=== PATIENT | female | born 1945 | race Caucasian/White ===

== ENCOUNTER 2018-03-08 13:19 | Emergency (ER) | payer MEDICARE ==
--- NOTE | 2018-03-08 13:47 | EDM.PDOC ---
ED HPI GENERAL MEDICAL PROBLEM - General Chief Complaint: General Stated Complaint: MEDICAL VIA [facility] Time Seen by Provider: 03/08/18 13:46 Source of Information: Reports: Patient History Limitations: Reports: No Limitations - History of Present Illness INITIAL COMMENTS - FREE TEXT/NARRATIVE: pt was having lunch and she suddenly had motion in front of her eyes and her vision got blurry. She did get sweaty and started to vomit. She had no chest pain. She did vomit several times and she ws still nauseated after arrival. She did not have abdomanal pain. Onset: Today Duration: Hour(s): Location: Reports: Generalized Associated Symptoms: Reports: Nausea/Vomiting, Weakness - Related Data Allergies Allergy/AdvReac Type Severity Reaction Status Date / Time Latex, Natural Rubber Allergy Itching Verified 03/08/18 13:35 Home Meds: Home Meds Aspirin [Halfprin] 81 mg PO DAILY 03/29/15 [History] Fexofenadine/Pseudoephedrine [Randi-D 24 Hour Tablet] 1 each PO BEDTIME [History] Pantoprazole Sodium 40 mg PO DAILY 03/29/15 [History] Pravastatin [Pravachol] 20 mg PO BEDTIME 03/29/15 [History] Triamterene/Hydrochlorothiazid [Triamterene-HCTZ 37.5-25 MG] 1 each PO DAILY [History] Lisinopril 1 tab PO DAILY 03/08/18 [History] Past Medical History HEENT History: Reports: Impaired Vision Other HEENT History: macular fold Cardiovascular History: Reports: High Cholesterol, Hypertension Gastrointestinal History: Reports: [employer] History: Reports: Neurological History: Reports: Migraines Other Endocrine/Metabolic History: in past - Past Surgical History HEENT Surgical History: Reports: Tonsillectomy Social & Family History - Tobacco Use Smoking Status *Q: Never Smoker - Recreational Drug Use Recreational Drug Use: No ED ROS GENERAL - Review of Systems Review Of Systems: See Below Constitutional: Reports: Diaphoresis HEENT: Reports: Other (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 For the last 2 days she has had alot of swelling present on and off. She did have a slight feeling of vertigo.) Respiratory: Reports: No Symptoms Cardiovascular: Reports: No Symptoms Endocrine: Reports: No Symptoms GI/Abdominal: Reports: Nausea, Vomiting, Other (no pain) : Reports: No Symptoms Musculoskeletal: Reports: No Symptoms Skin: Reports: No Symptoms Neurological: Reports: Weakness, Other ( Pt was slow to answer when she felt the worse. She does remember the entire event. ) Psychiatric: Reports: No Symptoms ED EXAM, GENERAL - Physical Exam Exam: See Below Free Text/Narrative:: Pt had an episode while out to lunche of vomiting blurred vision and feeling like the room was spinning. Exam Limited By: No Limitations General Appearance: Alert, Mild Distress, Other (pupils equal and reactive slight nystagmus) Ears: Normal TMs, Other (pt has definite swelling of the salivary gland. She has history of stones in the salivary duct. ) Nose: Normal Inspection Throat/Mouth: Normal Inspection Head: Atraumatic Neck: Normal Inspection Respiratory/Chest: No Respiratory Distress Cardiovascular: Regular Rate, Rhythm GI/Abdominal: Soft, Non-Tender (Female) Exam: Deferred Rectal (Female) Exam: Deferred Back Exam: Normal Inspection Extremities: Normal Inspection Neurological: Alert, Oriented, Normal Cognition Psychiatric: Normal Affect Course - Vital Signs Last Recorded V/S: Last Vital Signs Temp 35.6 C 03/08/18 13:37 Pulse 87 03/08/18 15:18 Resp 16 03/08/18 15:18 BP 107/62 03/08/18 15:18 Pulse Ox 91 L 03/08/18 15:18 - Orders/Labs/Meds Labs: Laboratory Tests 03/08/18 03/08/18 03/08/18 Range/Units 13:45 13:45 13:46 WBC 12.2 H (4.5-11.0) K/uL RBC 5.19 (3.30-5.50) M/uL Hgb 14.8 (12.0-15.0) g/dL Hct 44.5 (36.0-48.0) % MCV 86 (80-98) fL MCH 29 (27-31) pg MCHC 33 (32-36) % Plt Count 356 (150-400) K/uL Neut % (Auto) 76 H (36-66) % Lymph % (Auto) 14 L (24-44) % Ashe % (Auto) 8 H (2-6) % Eos % (Auto) 1 L (2-4) % Baso % (Auto) 0 (0-1) % Sodium 138 L (140-148) mmol/L Potassium 3.8 (3.6-5.2) mmol/L Chloride 99 L (100-108) mmol/L Carbon Dioxide 28 (21-32) mmol/L Anion Gap 14.8 H (5.0-14.0) mmol/L BUN 25 H (7-18) mg/dL Creatinine 1.2 H (0.6-1.0) mg/dL Est Cr Clr Drug Dosing 39.25 mL/min Estimated GFR (MDRD) 44 L (>60) Glucose 133 H (74-106) mg/dL Calcium 9.2 (8.5-10.1) mg/dL Total Bilirubin 0.4 (0.2-1.0) mg/dL AST 33 (15-37) U/L ALT 61 (12-78) U/L Alkaline Phosphatase 87 (46-116) U/L Troponin I < 0.017 (0.000-0.056) ng/mL Total Protein 7.2 (6.4-8.2) g/dL Albumin 3.5 (3.4-5.0) g/dL Globulin 3.7 H (2.3-3.5) g/dL Albumin/Globulin Ratio 1.0 L (1.2-2.2) Urine Color Urine Appearance Urine pH (4.5-8.0) Ur Specific [place] (1.008-1.030) Urine Protein (NEGATIVE) mg/dL Urine Glucose (UA) (NEGATIVE) mg/dL Urine Ketones (NEGATIVE) mg/dL Urine Occult Blood (NEGATIVE) Urine Nitrite (NEGATIVE) Urine Bilirubin (NEGATIVE) Urine Urobilinogen (NORMAL) mg/dL Ur Leukocyte Esterase (NEGATIVE) Urine RBC (0-5) Urine WBC (0-5) Ur Epithelial Cells Amorphous Sediment Urine Bacteria Urine Mucus 03/08/18 Range/Units 15:40 WBC (4.5-11.0) K/uL RBC (3.30-5.50) M/uL Hgb (12.0-15.0) g/dL Hct (36.0-48.0) % MCV (80-98) fL MCH (27-31) pg MCHC (32-36) % Plt Count (150-400) K/uL Neut % (Auto) (36-66) % Lymph % (Auto) (24-44) % [place]he % (Auto) (2-6) % Eos % (Auto) (2-4) % Baso % (Auto) (0-1) % Sodium (140-148) mmol/L Potassium (3.6-5.2) mmol/L Chloride (100-108) mmol/L Carbon Dioxide (21-32) mmol/L Anion Gap (5.0-14.0) mmol/L BUN (7-18) mg/dL Creatinine (0.6-1.0) mg/dL Est Cr Clr Drug Dosing mL/min Estimated GFR (MDRD) (>60) Glucose (74-106) mg/dL Calcium (8.5-10.1) mg/dL Total Bilirubin (0.2-1.0) mg/dL AST (15-37) U/L ALT (12-78) U/L Alkaline Phosphatase (46-116) U/L Troponin I (0.000-0.056) ng/mL Total Protein (6.4-8.2) g/dL Albumin (3.4-5.0) g/dL Globulin (2.3-3.5) g/dL Albumin/Globulin Ratio (1.2-2.2) Urine Color Yellow Urine Appearance Clear Urine pH 7.0 (4.5-8.0) Ur Specific [place] 1.010 (1.008-1.030) Urine Protein Negative (NEGATIVE) mg/dL Urine Glucose (UA) Normal (NEGATIVE) mg/dL Urine Ketones Negative (NEGATIVE) mg/dL Urine Occult Blood Negative (NEGATIVE) Urine Nitrite Negative (NEGATIVE) Urine Bilirubin Negative (NEGATIVE) Urine Urobilinogen Normal (NORMAL) mg/dL Ur Leukocyte Esterase Negative (NEGATIVE) Urine RBC 0-5 (0-5) Urine WBC 0-5 (0-5) Ur Epithelial Cells Many Amorphous Sediment Few Urine Bacteria Not seen Urine Mucus Not seen Meds: Medications Discontinued Medications Generic Name Dose Route Start Last Admin Trade Name Freq PRN Reason Stop Dose Admin Sodium Chloride 1,000 mls @ 999 mls/hr 03/08/18 14:15 03/08/18 15:39 Normal Saline IV 999 mls/hr ASDIRECTED SIM Administration Sodium Chloride 1,000 mls @ 999 mls/hr 03/08/18 15:45 03/08/18 16:43 Normal Saline IV 999 mls/hr ASDIRECTED SIM Administration Lorazepam 0.5 mg 03/08/18 15:39 Ativan IVPUSH 03/08/18 15:40 ONETIME ONE Meclizine HCl 25 mg 03/08/18 14:13 03/08/18 15:45 Antivert PO 03/08/18 14:14 25 mg ONETIME ONE Administration Ondansetron HCl 4 mg 03/08/18 14:13 03/08/18 15:47 Zofran IVPUSH 03/08/18 14:14 4 mg ONETIME ONE Administration - Re-Assessments/Exams Free Text/Narrative Re-Assessment/Exam: 03/08/18 16:59 pt had a cat scan of the head that was neg, her lab work looked good except a borderline creatnine which is not new. Her ekg did not reveal acute findings, Her trop was normal. Departure - Departure Time of Disposition: 15:20 Disposition: Home, Self-Care 01 Condition: Fair Clinical Impression: Inner ear dysfunction - Discharge Information Instructions: Labyrinthitis Referrals: PCP,None [Primary Care Provider] - Forms: ED Department Discharge Care Plan Goals: low activity for the next 2 days. zoforan 4 mg q6h prn for nausea, antivert 25 bid for dizziness for the next 2 days. Massage the duct of the rt salivary gland, cool pack, if not improving will need to see ENT
[2018-03-08] MEDS ORDERED: Meclizine 25 MG Tab PO ONE (14:13)
[2018-03-08] MEDS ORDERED: Ondansetron 4 MG/2 ML SDV IVPUSH ONE (14:13)
[2018-03-08] MEDS ORDERED: Sodium Chloride 0.9% 1,000 ML IV SCH ×2 (14:15→15:45)
[2018-03-08 15:20] VITALS: BP 107/62
[2018-03-08] MEDS ORDERED: LORazepam 2 MG/ML SDV IVPUSH ONE (15:39)
== END 2018-03-08 18:02 | disposition home or self-care (01) ==
LOC: JP.ED 13:19
DX: H83.2X9 Labyrinthine dysfunction, unspecified ear (principal); I10 Essential (primary) hypertension; E78.00 Pure hypercholesterolemia, unspecified; K21.9 Gastro-esophageal reflux disease without esophagitis; Z91.040 Latex allergy status; Z79.82 Long term (current) use of aspirin; Z79.899 Other long term (current) drug therapy
CPT/HCPCS: 36415; 70450; 80053; 81001; 84484; 85025; 93005; 96361; 96374; 99285; A9270; J2405; J7030